=== PATIENT | female | born 1990 | race Caucasian/White ===

== ENCOUNTER 2016-06-12 06:55 | Inpatient (IN) | payer OTHER ==
[2016-06-12] VITALS (14 sets, daily range): BP systolic 115–137; BP diastolic 68–87
[~2016-06-12] VITALS: Ht 157.5 cm; Wt 102.1 kg
[~2016-06-12 06:55] MED LIST: CHROMAGEN,1 CAPSULE PO; FIORICET,ESG1 TABLET PO; FLEXERIL10 MG PO; IBUPROFEN800 MG PO; MOTRIN800 MG PO; NAPROXEN500 MG PO; PEN-VEE K,VEET500 MG PO; PERCOCET 5/31 TABLET PO; PREDNISONE20 MG PO; PRENATAL TABLE1 EAC3 PO; PROZAC10 MG PO; PYRIDIUM100 MG PO; TOPIRAMATE25 MG PO; TYLENOL EXTRA500 MG PO; TYLENOL W/COD1 COMBO PO; TYLENOL WITH C1 EACH PO; Tums PO; VALTREX1000 MG PO; VENLAFAXINE H37.5 M3 PO; XANAX0.5 MG PO; ZANTAC150 MG PO; ZOFRAN4 MG PO
[2016-06-12 08:58] LABS: HEMATOCRIT 35.3 % (36.0-46.0); MCH 29.9 PG (29.0-34.0); MCHC 33.4 G/DL (30.0-36.0); MCV 89.6 FL (83-99); MEAN PLAT.VOLUME 11.9 uM^3 (9.5-12.4); PLATELET COUNT 129 K/uL (156-360); RBC DIS.WIDTH-CV 13.6 % (11.8-14.6); RBC DIS.WIDTH-SD 44.3 % (39-53); RED BLOOD COUNT 3.94 M/uL (3.80-5.20); WHITE BLOOD COUNT 7.4 K/uL (4.1-10.2)
[2016-06-12 09:03] LABS: EOSINOPHIL (%) 1.2 % (0-5); EOSINOPHIL COUNT 0.1 K/uL (0-0.3); IMMATURE GRANULOCYTE (%) 0.3 % (0.0-0.7); LYMPHOCYTE COUNT 1.9 K/uL (1.0-2.8); MONOCYTE COUNT 0.5 K/uL (0-0.8)
[2016-06-13] VITALS (45 sets, daily range): BP systolic 99–216; BP diastolic 57–102
[2016-06-13] MEDS ORDERED: IBUPROFEN800 MG PO (10:12)
[2016-06-13 12:44] LABS: EOSINOPHIL (%) 0.1 % (0-5); HEMATOCRIT 30.1 % (36.0-46.0); IMMATURE GRANULOCYTE (%) 0.2 % (0.0-0.7); LYMPHOCYTE COUNT 1.3 K/uL (1.0-2.8); MCH 29.7 PG (29.0-34.0); MCHC 33.2 G/DL (30.0-36.0); MCV 89.3 FL (83-99); MEAN PLAT.VOLUME 11.1 uM^3 (9.5-12.4); MONOCYTE COUNT 0.8 K/uL (0-0.8); NEUTROPHIL (%) 83.3 % (45-76); NEUTROPHIL COUNT 10.7 K/uL (1.8-6.4); PLATELET COUNT 121 K/uL (156-360); RBC DIS.WIDTH-CV 14.1 % (11.8-14.6); RBC DIS.WIDTH-SD 45.8 % (39-53); RED BLOOD COUNT 3.37 M/uL (3.80-5.20)
[2016-06-13 12:45] LABS: WHITE BLOOD COUNT 12.8 K/uL (4.1-10.2)
[2016-06-14 00:09] VITALS: BP 146/92
[2016-06-14 05:39] LABS: EOSINOPHIL (%) 0.9 % (0-5); EOSINOPHIL COUNT 0.1 K/uL (0-0.3); HEMATOCRIT 28.6 % (36.0-46.0); IMMATURE GRANULOCYTE (%) 0.3 % (0.0-0.7); LYMPHOCYTE COUNT 2.5 K/uL (1.0-2.8); MCH 29.7 PG (29.0-34.0); MCHC 32.9 G/DL (30.0-36.0); MCV 90.5 FL (83-99); MEAN PLAT.VOLUME 10.8 uM^3 (9.5-12.4); MONOCYTE (%) 7.7 % (3-12); MONOCYTE COUNT 0.6 K/uL (0-0.8); NEUTROPHIL (%) 58.4 % (45-76); NEUTROPHIL COUNT 4.4 K/uL (1.8-6.4); PLATELET COUNT 98 K/uL (156-360); RBC DIS.WIDTH-SD 45.8 % (39-53); RED BLOOD COUNT 3.16 M/uL (3.80-5.20)
[2016-06-14 05:46] LABS: WHITE BLOOD COUNT 7.6 K/uL (4.1-10.2)
[2016-06-14 07:14] VITALS: BP 129/76
[2016-06-14 15:24] VITALS: BP 123/75
[2016-06-14 22:43] VITALS: BP 130/83
[2016-06-15 07:55] VITALS: BP 116/72
== END 2016-06-15 13:30 | disposition home or self-care (01) | DRG 774 ==
LOC: LDRP-OP 06:55 → 2WEST 06:56 → LDRP-OP 08:01 → 2WEST 06-13 09:48 → LDRP-OP 07-29 12:14
PROVIDERS: Advanced Practice Midwife
DX: O76 Abnormality in fetal heart rate and rhythm complicating labor and delivery (principal); Z68.41 Body mass index [BMI] 40.0-44.9, adult; O99.214 Obesity complicating childbirth; E66.9 Obesity, unspecified; O99.334 Smoking (tobacco) complicating childbirth; F17.200 Nicotine dependence, unspecified, uncomplicated; O72.2 Delayed and secondary postpartum hemorrhage; O36.5931 Maternal care for other known or suspected poor fetal growth, third trimester, fetus 1; O99.344 Other mental disorders complicating childbirth; F31.9 Bipolar disorder, unspecified
CPT/HCPCS: 85025; 88307; C1755; G0378; J0330; J1050; J1100; J2210; J2250; J2270; J2405; J2540; J3010; J7120; S0020

== ENCOUNTER 2016-10-03 17:06 | Emergency (ER) | payer OTHER ==
[~2016-10-03] VITALS: Ht 157.5 cm; Wt 104.3 kg
[2016-10-03 18:14] LABS: HEMATOCRIT 34.7 % (36.0-46.0); MCH 24.5 PG (29.0-34.0); MCHC 30.8 G/DL (30.0-36.0); MCV 79.4 FL (83-99); MEAN PLAT.VOLUME 9.7 uM^3 (9.5-12.4); PLATELET COUNT 274 K/uL (156-360); RBC DIS.WIDTH-CV 15.9 % (11.8-14.6); RBC DIS.WIDTH-SD 45.1 % (39-53); RED BLOOD COUNT 4.37 M/uL (3.80-5.20)
[2016-10-03 18:26] LABS: CHLORIDE 109 mEq/L (99-109); POTASSIUM 3.8 mEq/L (3.7-5.4); SODIUM 140 mEq/L (136-147)
[2016-10-03 18:28] LABS: GLUCOSE 97 mg/dL (70-99)
[2016-10-03 18:29] LABS: ANION GAP 11 MEQ/L (2-14)
[2016-10-03 18:32] LABS: GFR ESTIMATE (CALCULATED) > 59 mL/min/
[2016-10-03 18:33] LABS: UREA NITROGEN (BUN) 8 mg/dL (9-23)
[2016-10-03 18:36] LABS: TROP-I INTERPRETATION NEGATIVE; TROPONIN-I < 0.01 ng/mL (0.0-0.30)
[2016-10-03 19:30] LABS: D-DIMER ELISA 0.89 mg/L FEU (< 0.57)
[2016-10-03] MEDS ORDERED: ZANTAC150 MG PO (22:25)
[2016-10-03 22:37] VITALS: BP 150/89
== END 2016-10-03 22:38 | disposition home or self-care (01) ==
LOC: EME 17:06
PROVIDERS: Emergency Medicine
DX: R07.9 Chest pain, unspecified (principal); K29.00 Acute gastritis without bleeding; K21.9 Gastro-esophageal reflux disease without esophagitis; F32.9 Major depressive disorder, single episode, unspecified; Z87.891 Personal history of nicotine dependence
CPT/HCPCS: 71020; 71275; 80048; 83880; 84484; 85027; 85379; 93005; 99281; 99284

== ENCOUNTER 2017-01-24 15:01 | Emergency (ER) | payer OTHER ==
[~2017-01-24] VITALS: Ht 157.5 cm; Wt 104.7 kg
[2017-01-24 17:27] LABS: HEMATOCRIT 38.2 % (36.0-46.0); MCH 27.2 PG (29.0-34.0); MCHC 31.9 G/DL (30.0-36.0); MCV 85.3 FL (83-99); MEAN PLAT.VOLUME 9.8 uM^3 (9.5-12.4); PLATELET COUNT 232 K/uL (156-360); RBC DIS.WIDTH-SD 46.1 % (39-53); RED BLOOD COUNT 4.48 M/uL (3.80-5.20); WHITE BLOOD COUNT 5.2 K/uL (4.1-10.2)
[2017-01-24 17:36] LABS: CHLORIDE 106 mEq/L (99-109); POTASSIUM 3.9 mEq/L (3.7-5.4); SODIUM 139 mEq/L (136-147)
[2017-01-24 17:38] LABS: GLUCOSE 92 mg/dL (70-99)
[2017-01-24 17:39] LABS: ANION GAP 7 MEQ/L (2-14)
[2017-01-24 17:40] LABS: TOTAL BILIRUBIN 0.3 mg/dL (0.0-1.0)
[2017-01-24 17:42] LABS: ALKALINE PHOSPHATASE 48 IU/L (3-129); GFR ESTIMATE (CALCULATED) > 59 mL/min/
[2017-01-24 17:43] LABS: UREA NITROGEN (BUN) 8 mg/dL (9-23)
[2017-01-24 17:48] LABS: TROP-I INTERPRETATION NEGATIVE; TROPONIN-I < 0.01 ng/mL (0.0-0.30)
[2017-01-24 17:50] LABS: QUANTITATIVE HCG < 4.0 MIU/ML
[2017-01-24] MEDS ORDERED: ATIVAN0.5 MG PO (18:19)
[2017-01-24 18:47] VITALS: BP 131/78
== END 2017-01-24 18:48 | disposition home or self-care (01) ==
LOC: EME 15:01
PROVIDERS: Physician Assistant
DX: R07.9 Chest pain, unspecified (principal); F41.9 Anxiety disorder, unspecified; S16.1XXA Strain of muscle, fascia and tendon at neck level, initial encounter; S46.912A Strain of unspecified muscle, fascia and tendon at shoulder and upper arm level, left arm, initial encounter; X58.XXXA Exposure to other specified factors, initial encounter; F17.210 Nicotine dependence, cigarettes, uncomplicated
CPT/HCPCS: 71020; 80053; 84484; 84702; 85027; 93005; 99281; 99283

== ENCOUNTER 2017-11-06 13:19 | Emergency (ER) | payer OTHER ==
[~2017-11-06] VITALS: Ht 160 cm; Wt 104.3 kg
[~2017-11-06 13:19] MED LIST changes: +ATIVAN0.5 MG PO
[2017-11-06] MEDS ORDERED: NAPROXEN500 MG PO (14:57)
[2017-11-06 16:15] VITALS: BP 139/100
== END 2017-11-06 16:27 | disposition home or self-care (01) ==
LOC: EME 13:19
DX: S83.91XA Sprain of unspecified site of right knee, initial encounter (principal); X50.1XXA Overexertion from prolonged static or awkward postures, initial encounter
CPT/HCPCS: 73564; 99281; 99283